=== PATIENT | female | born 1995 | race Caucasian/White ===

== ENCOUNTER 2016-12-24 20:16 | Outpatient (CLI) | payer OTHER ==
[~2016-12-24] VITALS: Ht 154.9 cm; Wt 71.2 kg
[~2016-12-24 20:16] MED LIST: FERR240T9 PO; PREN1TAB49 PO; PREN1TAB62 PO
[2016-12-24 20:36] VITALS: Ht 154.9 cm; Wt 71.2 kg
--- NOTE | 2016-12-24 21:58 | RADRPT ---
PROCEDURE: US OB biophysical profile. CLINICAL INDICATION: decreased movements, PTL TECHNIQUE: Multiple sonographic images of the pelvis were obtained. The images were reviewed on a PACS workstation. COMPARISON: 10/31/15 FINDINGS: There is a single viable intrauterine gestation. Cardiac activity is present with 132 beats per min esteban. There is a vertex presentation. The placenta is fundal. There is no evidence of placental abruption. There is a normal amount of amniotic fluid with an CHECO = 13.7 cm. Biophysical profile: movement 2/2 tone 2/2. breathing 2/2 CHECO 2/2 Total 02/20 RPTAT: AA . IMPRESSION: Normal biophysical profile. . .Papi Benton MD, MD Date Time Electronically viewed and signed by .Papi Benton MD, MD on 12/24/2016 21:58 .S/
[2016-12-24 21:59] LABS: ADD UMIC YES; URINE BILIRUBIN (Dip) NEGATIVE (NEGATIVE); URINE BLOOD (Dip) NEGATIVE (NEGATIVE); URINE COLOR LT. YELLOW (YELLOW); URINE GLUCOSE (Dip) NEGATIVE (NEGATIVE); URINE KETONES (Dip) NEGATIVE (NEGATIVE); URINE LEUKOCYTE ESTERASE (Dip) 1+ (NEGATIVE); URINE NITRITE (Dip) NEGATIVE (NEGATIVE); URINE TOTAL PROTEIN (Dip) NEGATIVE (NEGATIVE); URINE UROBILINOGEN (Dip) 0.2 E.U./dL (0.1-1.0)
[2016-12-24 22:11] LABS: URINE RBCS NONE SEEN /HPF (0)
[2016-12-24 22:12] LABS: BACTERIA,URINE RARE; SQUAMOUS EPITHELIAL CELL,UR RARE
--- NOTE | 2016-12-24 22:44 | PN ---
Triage Information Date/Time Weeks of Gestation 36+ : 2 Para: 1 Diabetes: none Diabetes management: diet controlled Hypertention: none Results/Medications Results 24 hrs Laboratory Tests Test 12/24/16 20:15 Urine Color LT. YELLOW Urine Clarity CLEAR Urine pH 6.0 Urine Specific Bailey 1.010 Urine Ketones NEGATIVE Urine Nitrite NEGATIVE Urine Bilirubin NEGATIVE Urine Urobilinogen 0.2 E.U./dL Urine Leukocyte Esterase 1+ H Urine Microscopic RBC NONE SEEN Urine Microscopic WBC 0-2 Urine Squamous Epithelial Cells RARE Urine Bacteria RARE Urine Hemoglobin NEGATIVE Urine Glucose NEGATIVE Urine Total Protein NEGATIVE Assessment/Plan No cervical change Labs AND Ultrasound results reviewed patient is discharged with precautions patient's questions answered STONEY DAHL M.D. Dec 24, 2016 22:44
--- NOTE | 2016-12-24 23:04 | TRIAGE ---
OB Triage Datetime Report Generated by CPN: 12/24/2016 23:04 Datetime: 12/24/2016 22:25 Stage of : OB Triage Labor Evaluation Frequency: Irregular Monitor Mode: External Duration (sec)2399: 50-100 Quality: Mild Pattern: Normal: <= 5 Contractions in 10 Minutes Resting Tone [place]: Relaxed Heart Rate FHR Baseline Rate: 135 Monitor Mode: External US Variability: Moderate 6-25 bpm Accelerations: 15X15 Decelerations: None Category: Category I Datetime: 12/24/2016 22:24 Stage of : OB Triage Pain Assessment Pain Scale: 2 Pain Presence: Intermittent Pain Type: Cramping Pain Location: Abdomen; Back Pain Relief Measures: Comfort Measures Pain Assessment Comments: Pt reports mild back pain _ cramping. Ok to go home. Datetime: 12/24/2016 21:30 Labor Evaluation Frequency: X1 Monitor Mode: External Duration (sec)2399: 60 Pattern: Normal: <= 5 Contractions in 10 Minutes Heart Rate FHR Baseline Rate: 140 Monitor Mode: External US FHR Baseline Changes: No Baseline Change Variability: Moderate 6-25 bpm Accelerations: 15X15 Category: Category I Datetime: 12/24/2016 20:34 Vaginal Exam Dilatation (cms): 1.0 Effacement (%): 30 Station: -2 Exam By: GSTRATTON Vaginal Bleeding: None Cervix, Consistency: Moderate Cervix, Position: Posterior Presentation 'A': Cephalic Datetime: 12/24/2016 20:30 Assessment Type: Triage Maternal Assessment Level of Consciousness: Fully Conscious Headache: Denies Blurred Vision: No Respiratory Effort: Unlabored; Regular Rhythm; Equal Expansion Nausea/Vomiting: Denies RUQ Epigastric Pain: Denies Facial Edema: None Fall Risk Assessment History of Falling: (0) No Secondary Diagnosis: (0) No Ambulatory Aid: (0) Bedrest/Nurse Assist IV Therapy: (0) No Gait: (0) Normal/Bedrest/Immobile Mental Status: (0) Oriented to Own Ability Fall Score: 0 Fall Risk Score Definition: No Risk: No action required Datetime: 12/24/2016 20:29 Monitor Mode: External Monitor Mode: External US Datetime: 12/24/2016 20:27 Temperature Route: Oral Datetime: 12/24/2016 20:26 Stage of : OB Triage Datetime: 12/24/2016 20:24 EGA: 36.5 Datetime: 12/24/2016 20:21 Time of Arrival: 12/24/2016 20:12 Arrived By: Wheelchair Arrived From: Home Chief Complaint: LOWER ABD PAIN/UC'S SINCE FRIDAY 12/22 Movement: Present Contractions: Occasional Time Contractions Began: 12/22/2016 09:00 Contractions: Q1HR Rupture of Membranes: Denies Vaginal Bleeding: None Vaginal Discharge: Denies Recent Sexual Intercouse: Denies Abdominal Trauma: Not Applicable Patient Complaints: Contractions; Cramping; Back Pain Time Provider Notified: 12/24/2016 20:56 Provider Notified: Initial Plan: EFPaula,SVDeana, CALL OB
== END 2016-12-24 22:36 | disposition home or self-care (01) ==
LOC: OBT 20:16 → L-D 20:17 → OBT 22:36
PROVIDERS: ATTEND Obstetrics & Gynecology
DX: O24.913 Unspecified diabetes mellitus in pregnancy, third trimester (principal); Z3A.36 36 weeks gestation of pregnancy
CPT/HCPCS: 76818; 81001; Z7500; G0463

== ENCOUNTER 2017-01-05 19:07 | Inpatient (IN) | payer OTHER ==
[~2017-01-05] VITALS: Ht 154.9 cm; Wt 71.2 kg
[~2017-01-05 19:07] MED LIST changes: -FERR240T9 PO; -PREN1TAB62 PO
[2017-01-05 20:07] VITALS: BP 115/69; PULSE 85; RESP 18; Ht 154.9 cm; Wt 71.2 kg
[2017-01-05] MEDS ORDERED: TERBUTALINE 1 MG/ML INJ SC ONE (21:30)
[2017-01-05] MEDS ORDERED: OXYTOCIN 30 UNITS/LR 500 ML IV PRN (23:00)
[2017-01-05] MEDS ORDERED: LACTATED RINGER'S 1,000 ML IV PRN (23:00)
[2017-01-05] MEDS ORDERED: LIDOCAINE 1% (MPF) 30 ML INJ INJ PRN (23:00)
[2017-01-05] MEDS ORDERED: MISOPROSTOL 200 MCG TAB PR PRN (23:00)
[2017-01-05] MEDS ORDERED: IBUPROFEN 600 MG TAB PO PRN (23:00)
[2017-01-05] MEDS ORDERED: CARBOPROST 250 MCG INJ IM PRN (23:00)
[2017-01-05] MEDS ORDERED: BUTORPHANOL 2 MG INJ IV PRN (23:00)
[2017-01-05] MEDS ORDERED: METHYLERGONOVINE 0.2 MG INJ IM PRN (23:00)
[2017-01-05] MEDS ORDERED: OXYTOCIN 30 UNITS/LR 500 ML IV SCH ×2 (23:00)
--- NOTE | 2017-01-05 23:26 | TRIAGE ---
OB Triage Datetime Report Generated by CPN: 01/05/2017 23:25 Datetime: 01/05/2017 23:00 Labor Evaluation Frequency: 4-8 Monitor Mode: External Duration (sec)2399: 60-80 Quality: Mild Pattern: Normal: <= 5 Contractions in 10 Minutes Resting Tone [place]: Relaxed Heart Rate FHR Baseline Rate: 130 Monitor Mode: External US Variability: Moderate 6-25 bpm Accelerations: 15X15 Decelerations: None Category: Category I Datetime: 01/05/2017 22:30 Labor Evaluation Frequency: 7-10 Monitor Mode: External Duration (sec)2399: 70-100 Quality: Mild Pattern: Normal: <= 5 Contractions in 10 Minutes Resting Tone [place]: Relaxed Heart Rate FHR Baseline Rate: 130 Monitor Mode: External US Variability: Moderate 6-25 bpm Accelerations: 15X15 Decelerations: None Category: Category I Datetime: 01/05/2017 22:08 Vaginal Exam Dilatation (cms): 5.0 Effacement (%): 80 Station: -2 Exam By: BE Vaginal Bleeding: None Cervix, Consistency: Soft Cervix, Position: Midposition Presentation 'A': Cephalic Datetime: 01/05/2017 21:50 Time of Arrival: 01/05/2017 19:05 EGA: 38.3 Arrived By: Ambulatory Arrived From: Home Chief Complaint: CONTRACTIONS SINCE THE AM Movement: Present Contractions: Irregular Contractions: Q20 MIN Rupture of Membranes: Denies Vaginal Bleeding: None Vaginal Discharge: Denies Recent Sexual Intercouse: Denies Abdominal Trauma: Not Applicable Patient Complaints: Contractions Time Provider Notified: 01/05/2017 20:15 Provider Notified: KETAN Initial Plan: CEFM, SVE Datetime: 01/05/2017 20:01 Monitor Mode: External Duration (sec)2399: X2 Quality: Mild Pattern: Normal: <= 5 Contractions in 10 Minutes Intensity IUP (mmHg): 70-110 Resting Tone [place]: Relaxed Heart Rate FHR Baseline Rate: 140 Monitor Mode: External US Variability: Moderate 6-25 bpm Accelerations: 15X15 Decelerations: None Category: Category I Datetime: 01/05/2017 19:30 Vaginal Exam Dilatation (cms): 4.0 Effacement (%): 70 Station: -2 Exam By: BE Vaginal Bleeding: None Cervix, Consistency: Soft Cervix, Position: Midposition Presentation 'A': Cephalic Datetime: 01/05/2017 19:28 Assessment Type: Triage Maternal Assessment Level of Consciousness: Fully Conscious DTR's/Clonus: DTRs 2+; No Clonus Headache: Denies Blurred Vision: No Respiratory Effort: Unlabored; Regular Rhythm; Equal Expansion Breath Sounds, Left: Clear and Equal Breath Sounds, Right: Clear and Equal Nausea/Vomiting: Denies RUQ Epigastric Pain: Denies Lower Extremities Edema: None Degree: None Upper Extremities Edema: None Degree: None Facial Edema: None Fall Risk Assessment History of Falling: (0) No Secondary Diagnosis: (0) No Ambulatory Aid: (0) Bedrest/Nurse Assist IV Therapy: (0) No Gait: (0) Normal/Bedrest/Immobile Mental Status: (0) Oriented to Own Ability Fall Score: 0 Fall Risk Score Definition: No Risk: No action required Datetime: 12/24/2016 20:30 Fall Score: 0 Fall Risk Score Definition: No Risk: No action required Datetime: 12/24/2016 20:24 EGA: 36.5
[2017-01-05] MEDS: LACTATED RINGER'S 1,000 ML IV SCH (23:36)
[2017-01-06 00:12] LABS: ADD SCAN DIFF NO
[2017-01-06 00:13] LABS: BASOPHILS % 0.1 % (0.0-2.0); EOSINOPHILS # 0.1 10^3/ul (0.0-0.5); EOSINOPHILS % 1.7 % (0.0-7.0); HEMOGLOBIN 11.5 g/dl (12.0-16.0); LYMPHOCYTES # 1.6 10^3/ul (0.8-2.9); MEAN CORPUSCULAR HEMOGLOBIN 29.5 pg (29.0-33.0); MEAN CORPUSCULAR HGB CONC 32.9 g/dl (32.0-37.0); MEAN CORPUSCULAR VOLUME 89.7 fl (82.0-101.0); MEAN PLATELET VOLUME 12.2 fl (7.4-10.4); MONOCYTE # 0.6 10^3/ul (0.3-0.9); MONOCYTES % 7.4 % (0.0-11.0); NEUTROPHIL # 5.9 10^3/ul (1.6-7.5); PLATELET COUNT 176 10^3/UL (140-415); RED CELL DISTRIBUTION WIDTH 14.7 % (11.5-14.5); WHITE BLOOD COUNT 8.4 10^3/ul (4.8-10.8)
[2017-01-06 00:31] LABS: INR 0.93; PARTIAL THROMBOPLASTIN TIME 28.1 Sec (25.0-35.0); PROTIME 12.5 Sec (12.2-14.2)
[2017-01-06] MEDS ORDERED: FENTAnyl 2MCG/ML-ROPIV 0.2% 100 ML ONE (02:33)
[2017-01-06] MEDS ORDERED: FENTAnyl 2MCG/ML-ROPIV 0.2% 100 ML BAG EPI SCH (03:00)
[2017-01-06] MEDS ORDERED: NALOXONE (0.4 MG/ML) INJ IV PRN (03:00)
[2017-01-06] MEDS ORDERED: ONDANSETRON 4 MG INJ IV PRN (03:00)
[2017-01-06] MEDS ORDERED: DIPHENHYDRAMINE 50 MG INJ IV PRN (03:00)
[2017-01-06] MEDS: LACTATED RINGER'S 1,000 ML IV SCH (05:31)
--- NOTE | 2017-01-06 07:15 | LDN ---
Date/Time of Note Date/Time of Note DATE: 01/06/17 TIME: 07:14 Delivery Summary 38+wks GA Placenta Delivered: Spontaneously Episiotomy: No Perineal laceration: 1 Anesthesia type: Epidural Estimated blood loss: 200 Sponge & Needle done & correct: Yes All needle counts correct: Yes Any foreign bodies felt in the: No Problems: Infant Delivery Information Apgars 1 Minute: 9 5 Minute: 9 Suctioning Nose & mouth suctioned at judith: Yes Delee suction performed: Yes Umbilical Cord Umbilical cord with: 3 Vessels Cord presentations: no nuchal cord Cord Blood was obtained: Yes STONEY DAHL M.D. Jan 06, 2017 07:15
--- NOTE | 2017-01-06 07:16 | HP ---
Date/Time of Note Date/Time of Note DATE: 01/06/17 TIME: 07:15 OB - History Hx of Present Free Text/Dictation @38+ wks GA : 6 Para: 5 Care: Good Care Ultrasounds: Normal mid trimester US Obstetrical Complications: None Medical Complications: None Past Family/Social History * Past Medical, Surgical, Family and Obstetric Histories reviewed from chart. OB Admission Exam Vital Signs Vital Signs Vital Signs Date Time Temp Pulse Resp B/P Pulse Ox O2 Delivery O2 Flow Rate FiO2 01/05/17 20:07 98.2 85 18 115/69 Room Air Physical Exam Abdomen: WNL Extremities: Normal Reflexes: Normal Membranes: Intact Heart Rate: 140's Accelerations: Accelerations Present Decelerations: No Decelerations Varibility: Moderate Contractions on Admission: < 5 Minutes Apart Last 72 hours Lab Results CBC & BMP 01/05/17 23:23 OB Assessment/Plan Reason for admission: observation Plan: Expectant Management Other plan: Anticipated STONEY DAHL M.D. Jan 06, 2017 07:16
[2017-01-06 09:25] VITALS: BP 97/53; PULSE 75; RESP 16
[2017-01-06] MEDS ORDERED: MISOPROSTOL 200 MCG TAB PR PRN (09:30)
[2017-01-06] MEDS ORDERED: WITCH HAZEL/GLYCERIN PAD PR PRN (09:30)
[2017-01-06] MEDS ORDERED: BENZOCAINE 20% 56 ML SPRAY TOP PRN (09:30)
[2017-01-06] MEDS ORDERED: OXYCODONE/ASPIRIN (4.88/325) TAB PO PRN (09:30)
[2017-01-06] MEDS ORDERED: SENNA/DOCUSATE NA (8.6MG/50MG) TAB PO PRN (09:30)
[2017-01-06] MEDS ORDERED: CARBOPROST 250 MCG INJ IM PRN (09:30)
[2017-01-06] MEDS ORDERED: LANOLIN 7 GM TUBE TOP PRN (09:30)
[2017-01-06] MEDS ORDERED: METHYLERGONOVINE 0.2 MG INJ IM PRN (09:30)
[2017-01-06] MEDS ORDERED: ZOLPIDEM 5 MG TAB PO PRN (09:30)
[2017-01-06] MEDS ORDERED: OXYTOCIN 30 UNITS/LR 500 ML IV PRN (09:30)
[2017-01-06] MEDS: SENNA/DOCUSATE NA (8.6MG/50MG) TAB PO SCH (09:38)
[2017-01-06 10:20] VITALS: BP 95/69; PULSE 67; RESP 16
[2017-01-06 11:54] VITALS: BP 110/63; PULSE 77; RESP 14
[2017-01-06] MEDS: IBUPROFEN 600 MG TAB PO SCH ×2 (11:57→17:56)
[2017-01-06] MEDS: LACTATED RINGER'S 1,000 ML IV* SCH ×2 (12:02→19:30)
[2017-01-06 16:55] VITALS: BP 106/75; PULSE 70; RESP 19
[2017-01-06 19:40] VITALS: BP 108/70; PULSE 69; RESP 19
[2017-01-07] MEDS: IBUPROFEN 600 MG TAB PO SCH ×3 (00:12→11:52)
[2017-01-07] MEDS: LACTATED RINGER'S 1,000 ML IV* SCH ×2 (02:31→09:17)
[2017-01-07 03:40] VITALS: BP 108/59; PULSE 65; RESP 19
[2017-01-07 07:33] LABS: ADD SCAN DIFF NO
[2017-01-07 07:50] LABS: BASOPHILS % 0.1 % (0.0-2.0); EOSINOPHILS # 0.1 10^3/ul (0.0-0.5); EOSINOPHILS % 1.8 % (0.0-7.0); HEMATOCRIT 30.8 % (37.0-47.0); HEMOGLOBIN 10.2 g/dl (12.0-16.0); LYMPHOCYTES % 25.6 % (15.0-51.0); MEAN CORPUSCULAR HEMOGLOBIN 30.1 pg (29.0-33.0); MEAN CORPUSCULAR HGB CONC 33.1 g/dl (32.0-37.0); MEAN CORPUSCULAR VOLUME 90.9 fl (82.0-101.0); MEAN PLATELET VOLUME 12.5 fl (7.4-10.4); MONOCYTE # 0.7 10^3/ul (0.3-0.9); MONOCYTES % 8.5 % (0.0-11.0); NEUTROPHIL # 4.8 10^3/ul (1.6-7.5); NEUTROPHILS % 63.1 % (39.0-77.0); PLATELET COUNT 146 10^3/UL (140-415); RED BLOOD COUNT 3.39 10^6/ul (4.20-5.40); RED CELL DISTRIBUTION WIDTH 14.9 % (11.5-14.5); WHITE BLOOD COUNT 7.6 10^3/ul (4.8-10.8)
[2017-01-07 08:25] VITALS: BP 101/65; PULSE 61; RESP 18
[2017-01-07] MEDS: SENNA/DOCUSATE NA (8.6MG/50MG) TAB PO SCH (10:14)
--- NOTE | 2017-01-07 12:09 | PD.PPDC ---
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
--- NOTE | 2017-01-07 12:13 | DS ---
Date/Time of Note Date/Time of Note DATE: 01/07/17 TIME: 12:09 Discharge Summary Admission/Discharge Info Admit Date/Time Jan 05, 2017 at 23:10 Discharge Date/Time January 07, 2017 at 1205 Discharge Diagnosis Day 1 post normal vaginal delivery Patient Condition: Good Procedures Normal spontaneous vaginal delivery Hx of Present Illness Term normal vaginal delivery Hospital Course Satisfactory uneventful Home Meds Reported Medications Vits W-Ca,Fe,Fa(<1MG) () 1 Tab Tablet, 1 TAB PO 01/05/12 Follow-up Plan Appointment clinic in 2 weeks for follow-up Primary Care Provider Kofi Abreu Pending Labs Laboratory Tests Test 01/07/17 06:15 White Blood Count 7.610^3/ul (4.8-10.8) Red Blood Count 3.3910^6/ul (4.20-5.40) Hemoglobin 10.2g/dl (12.0-16.0) Hematocrit 30.8% (37.0-47.0) Mean Corpuscular Volume 90.9fl (82.0-101.0) Mean Corpuscular Hemoglobin 30.1pg (29.0-33.0) Mean Corpuscular Hemoglobin Concent 33.1g/dl (32.0-37.0) Red Cell Distribution Width 14.9% (11.5-14.5) Platelet Count 12446^3/UL (140-415) Mean Platelet Volume 12.5fl (7.4-10.4) Neutrophils % 63.1% (39.0-77.0) Lymphocytes % 25.6% (15.0-51.0) Monocytes % 8.5% (0.0-11.0) Eosinophils % 1.8% (0.0-7.0) Basophils % 0.1% (0.0-2.0) Nucleated Red Blood Cells % 0.0/100WBC (0.0-0.0) Neutrophils # 4.810^3/ul (1.6-7.5) Lymphocytes # 2.010^3/ul (0.8-2.9) Monocytes # 0.710^3/ul (0.3-0.9) Eosinophils # 0.110^3/ul (0.0-0.5) Basophils # 0.010^3/ul (0.0-0.1) Nucleated Red Blood Cells # 0.010^3/ul (0.0-0.0) STEPHEN PARRISH MD Jan 07, 2017 12:13
[2017-01-08] MEDS ORDERED: DIPHTH/TET/ACEL PERTUSS (ADULT) 0.5 ML VIAL IM* ONE (09:00)
== END 2017-01-07 15:20 | disposition home or self-care (01) | DRG 775 ==
LOC: OBT 19:07 → L-D 19:07 → OBT 22:49 → L-D 23:10 → PP1 01-06 09:38
PROVIDERS: ADMIT Obstetrics & Gynecology; ATTEND Obstetrics & Gynecology
PROC: 10E0XZZ Delivery of Products of Conception, External Approach (ICD-10-PCS; principal; 2017-01-06)
PROC: 0HQ9XZZ Repair Perineum Skin, External Approach (ICD-10-PCS; 2017-01-06)
PROC: 3E0234Z Introduction of Serum, Toxoid and Vaccine into Muscle, Percutaneous Approach (ICD-10-PCS; 2017-01-07)
DX: O70.0 First degree perineal laceration during delivery (principal); Z37.0 Single live birth; Z3A.38 38 weeks gestation of pregnancy
CPT/HCPCS: 62319; 85025; 85610; 85730; 86592; 86850; 86885; 86900; 86901; G0463; J2405; J2590; J2790; J3010; J7120

== ENCOUNTER 2017-03-17 23:29 | Emergency (ER) | payer SELFPAY ==
[~2017-03-17] VITALS: Ht 162.6 cm; Wt 62.0 kg
[2017-03-17 23:57] VITALS: Ht 162.6 cm; Wt 62.0 kg
[2017-03-18] MEDS ORDERED: ONDANSETRON 4 MG INJ IV STA (02:08)
[2017-03-18] MEDS ORDERED: SOD CHLORIDE 0.9% 1,000 ML IV STA (02:08)
[2017-03-18] MEDS ORDERED: morphine 4 MG/ML VIAL IV STA (02:08)
--- NOTE | 2017-03-18 03:01 | ERD ---
ER Documentation Chief Complaint Date/Time DATE: 03/18/17 TIME: 02:59 Chief Complaint bilateral flank pain x 3 days, denies dysuria, +hearn/bilateral ear ache HPI 21-year-old female presents here in emergency department for complaints of bilateral upper abdominal pain radiating to the bilateral flank area and back that started 3 days ago. Patient described the pain as sharp pain, 6/10 scale, accompanied with fever on and off. Patient denies any nausea or vomiting. Patient states that she also has been having headache and bilateral ear pain, throbbing pain, 6/10 scale, accompanying the symptoms. ROS All systems reviewed and are negative except as per history of present illness. Medications Home Meds Active Scripts Hydrocodone/Acetaminophen (Edwards 5-325 Tablet) 1 Each Tablet, 1 TAB PO Q6H Y for SEVERE PAIN LEVEL 7-10, #20 TAB Prov:JANET ORTEGA NP 03/18/17 Ibuprofen* (Motrin*) 600 Mg Tab, 600 MG PO Q6H Y for PAIN AND OR ELEVATED TEMP, #30 TAB Prov:JANET ORTEGA NP 03/18/17 Phenazopyridine Hcl* (Pyridium*) 200 Mg Tab, 200 MG PO TID Y for URINARY PAIN, # 6 TAB Prov:JANET ORTEGA NP 03/18/17 Ciprofloxacin Hcl* (Ciprofloxacin Hcl*) 500 Mg Tablet, 500 MG PO BID for 10 Days , TAB Prov:JANET ORTEGA NP 03/18/17 Reported Medications Vits W-Ca,Fe,Fa(<1MG) () 1 Tab Tablet, 1 TAB PO 01/05/12 Allergies Allergies: Coded Allergies: No Known Drug Allergy (Verified Allergy, Unknown, 12/24/16) PMhx/Soc Medical and Surgical Hx: pt denies Medical Hx, pt denies Surgical Hx Hx Alcohol Use: No Hx Substance Use: No Hx Tobacco Use: No Smoking Status: Never smoker FmHx Family History: No coronary disease, No diabetes, No other Physical Exam Vitals Vital Signs Date Time Temp Pulse Resp B/P Pulse Ox O2 Delivery O2 Flow Rate FiO2 03/17/17 23:57 100.2 93 18 107/65 97 Physical Exam GENERAL: The patient is well developed and appropriate for usual state of health, in no apparent distress. CHEST: Clear to auscultation bilaterally. There are no rales, wheezes or rhonchi. HEART: Regular rate and rhythm. No murmurs, clicks, rubs or gallops. No S3 or S4. ABDOMEN: Soft, nontender and nondistended. Good bowel sounds. No rebound or guarding. No gross peritonitis. No gross organomegaly or masses. No Farfan sign or McBurney point tenderness. BACK: No midline or flank tenderness. EXTREMITIES: Equal pulses bilaterally. There is no peripheral clubbing, cyanosis or edema. No focal swelling or erythema. Full range of motion. Grossly neurovascularly intact. NEURO: Alert and oriented. Cranial nerves 2-12 intact. Motor strength in all 4 extremities with 5/5 strength. Sensation grossly intact. Normal speech and gait. SKIN: There is no apparent rash or petechia. The skin is warm and dry. HEMATOLOGIC AND LYMPHATIC: There is no evidence of excessive bruising or lymphedema. No gross cervical, axillary, or inguinal lymphadenopathy. Result Diagram: 03/18/17 0257 03/18/17 0257 Results 24 hrs Laboratory Tests Test 03/18/17 02:57 White Blood Count 16.010^3/ul Red Blood Count 4.2410^6/ul Hemoglobin 12.4g/dl Hematocrit 36.6% Mean Corpuscular Volume 86.3fl Mean Corpuscular Hemoglobin 29.2pg Mean Corpuscular Hemoglobin Concent 33.9g/dl Red Cell Distribution Width 13.9% Platelet Count 32551^3/UL Mean Platelet Volume 11.9fl Neutrophils % 81.5% Lymphocytes % 9.1% Monocytes % 8.6% Eosinophils % 0.1% Basophils % 0.1% Nucleated Red Blood Cells % 0.0/100WBC Neutrophils # (Manual) 13.010^3/ul Lymphocytes # 1.510^3/ul Monocytes # 1.410^3/ul Eosinophils # 0.010^3/ul Basophils # 0.010^3/ul Nucleated Red Blood Cells # 0.010^3/ul Urine Color YELLOW Urine Clarity CLOUDY Urine pH 5.0 Urine Specific [place] 1.020 Urine Ketones TRACEmg/dL Urine Nitrite POSITIVEmg/dL Urine Bilirubin NEGATIVEmg/dL Urine Urobilinogen NEGATIVEmg/dL Urine Leukocyte Esterase 3+Christy/ul Urine Microscopic RBC 8/HPF Urine Microscopic WBC 67/HPF Urine Squamous Epithelial Cells FEW/HPF Urine Bacteria MANY/HPF Urine Mucus MANY/HPF Urine Hemoglobin 2+mg/dL Urine Glucose NEGATIVEmg/dL Urine Total Protein 2+mg/dl Sodium Level 141mmol/L Potassium Level 3.9mmol/L Chloride Level 101mmol/L Carbon Dioxide Level 29mmol/L Anion Gap 15 Blood Urea Nitrogen 13mg/dl Creatinine 0.70mg/dl Glucose Level 164mg/dl Calcium Level 9.3mg/dl Total Bilirubin 1.0mg/dl Direct Bilirubin 0.00mg/dl Indirect Bilirubin 1.0mg/dl Aspartate Amino Transf (AST/SGOT) 20IU/L Alanine Aminotransferase (ALT/SGPT) 28IU/L Alkaline Phosphatase 89IU/L Total Protein 7.9g/dl Albumin 4.2g/dl Globulin 3.70g/dl Albumin/Globulin Ratio 1.13 Lipase 19U/L Current Medications Medications (Trade) Dose Ordered Sig/Radha Route PRN Reason Start Time Stop Time Status Last Admin Dose Admin Sodium Chloride (NS) 1,000 ml @ 1,000 mls/hr Q1H STAT IV 03/18/17 02:08 03/18/17 03:07 DC 03/18/17 03:21 Morphine Sulfate (morphine) 4 mg ONCE STAT IV 03/18/17 02:08 03/18/17 02:09 DC 03/18/17 03:20 Ondansetron HCl 4 mg 4 mg ONCE STAT IV 03/18/17 02:08 03/18/17 02:09 DC 03/18/17 03:21 Ceftriaxone Sodium (Rocephin) 50 ml @ 100 mls/hr ONCE ONCE IVPB 03/18/17 05:30 03/18/17 05:59 03/18/17 05:32 Patient was given medication for pain here in emergency department, after treatment, patient verbalized feeling much better. Patient's pain is improved.Normal saline IV bolus was given here in emergency department for rehydration, patient tolerated IV fluids.Patient was given Zofran here in the emergency department. After treatment, patient was able to tolerate po fluids here in the emergency department without any vomiting. There is no signs and symptoms of dehydration. PROCEDURE: US Abdomen (right upper quadrant). CLINICAL INDICATION: Abdominal pain TECHNIQUE: Multiple real-time longitudinal and transverse images of the right upper quadrant of the abdomen were acquired utilizing a curved array transducer. Images were reviewed on a high-resolution PACS workstation. The exam is limited due to body habitus. COMPARISON: None FINDINGS: The liver is normal in size and echogenicity without focal mass or intrahepatic biliary dilatation. There is normal hepatopedal flow within the main portal vein. The gallbladder is normal. There is no pericholecystic fluid or gallbladder wall thickening or gallstones. No intra or extrahepatic biliary dilatation is seen. The common bile duct measures 4.0 mm in maximal dimension. The visualized portions of the pancreas are unremarkable with obscuration of the tail of the pancreas. No free fluid is identified. The right kidney measures 11.6 cm in length. There is normal echogenicity within the right kidney. There is no perinephric fluid collection. No hydronephrosis, mass, or calculus is seen. IMPRESSION: No evidence of cholelithiasis or acute cholecystitis. RPTAT: HCNS Physician Parish Date Time Electronically viewed and signed by Physician Parish on 03/18/2017 03: 59 CS/ CC: JANET ORTGEA [employer] Procedures/MDM Medical Decision Making: Patient's symptoms aside is consistent with pyelonephritis. Liver function tests are normal, lipase are normal, no pancreatitis, acute cholecystitis. Outpatient management is appropriate at this time since patient has no risk factors, patient appears well and is hemodynamically stable. Patient fever is controlled. Strict return to ER precautions was advised to the patient.There is low suspicion for abdominal emergencies at this time. Patients abdominal exam is normal at this time. Patients radiology exam does not show any abdominal emergencies at this time. There is low suspicion for appendicitis, cholecystitis, abdominal aortic aneurysms or peritonitis at this time. There is low suspicion for sepsis. Patient appears well and is hemodynamically stable. Disposition: Home. Condition: Stable Prescription ciprofloxacin, Pyridium, ibuprofen, Edwards Instructions: Patient is advised to take medications as prescribed. Patient is advised to rest, increase fluid intake and do brat diet for next 1-2 days and progress as tolerated. Patient is advised that if symptoms are worse, severe abdominal pain, uncontrolled vomiting, high fever, severe flank pain, worst signs and symptoms, to return to the emergency department immediately. Otherwise, patient can follow up with primary care doctor in 5-7 days. Departure Diagnosis: Primary Impression: Pyelonephritis Condition: Stable Patient Instructions: Pyelonephritis, Female (Adult) Additional Instructions: Patient is advised to take medications as prescribed. Patient is advised to rest , increase fluid intake and do brat diet for next 1-2 days and progress as tolerated. Patient is advised that if symptoms are worse, severe abdominal pain , uncontrolled vomiting, high fever, severe flank pain, worst signs and symptoms , to return to the emergency department immediately. Otherwise, patient can follow up with primary care doctor in 5-7 days. JANET ORTEGA NP Mar 18, 2017 03:00
[2017-03-18 03:22] LABS: BASOPHILS % 0.1 % (0.0-2.0); EOSINOPHILS % 0.1 % (0.0-7.0); HEMATOCRIT 36.6 % (37.0-47.0); HEMOGLOBIN 12.4 g/dl (12.0-16.0); LYMPHOCYTES # 1.5 10^3/ul (0.8-2.9); LYMPHOCYTES % 9.1 % (15.0-51.0); MEAN CORPUSCULAR HEMOGLOBIN 29.2 pg (29.0-33.0); MEAN CORPUSCULAR HGB CONC 33.9 g/dl (32.0-37.0); MEAN CORPUSCULAR VOLUME 86.3 fl (82.0-101.0); MEAN PLATELET VOLUME 11.9 fl (7.4-10.4); MONOCYTE # 1.4 10^3/ul (0.3-0.9); MONOCYTES % 8.6 % (0.0-11.0); NEUTROPHILS % 81.5 % (39.0-77.0); PLATELET COUNT 181 10^3/UL (140-415); RED BLOOD COUNT 4.24 10^6/ul (4.20-5.40); RED CELL DISTRIBUTION WIDTH 13.9 % (11.5-14.5)
--- NOTE | 2017-03-18 04:01 | RADRPT ---
PROCEDURE: US Abdomen (right upper quadrant). CLINICAL INDICATION: Abdominal pain TECHNIQUE: Multiple real-time longitudinal and transverse images of the right upper quadrant of th e abdomen were acquired utilizing a curved array transducer. Images were reviewed on a high-resoluti on PACS workstation. The exam is limited due to body habitus. COMPARISON: None FINDINGS: The liver is normal in size and echogenicity without focal mass or intrahepatic biliary dilatation. There is normal hepatopedal flow within the main portal vein. The gallbladder is normal. There is no pericholecystic fluid or gallbladder wall thickening or gallstones. No intra or extrahepatic abbey iary dilatation is seen. The common bile duct measures 4.0 mm in maximal dimension. The visualized portions of the pancreas are unremarkable with obscuration of the tail of the pancreas. No free fl uid is identified. The right kidney measures 11.6 cm in length. There is normal echogenicity within the right kidney. There is no perinephric fluid collection. No hydronephrosis, mass, or calculus is seen. IMPRESSION: No evidence of cholelithiasis or acute cholecystitis. RPTAT: HCNS Physician Parish Date Time Electronically viewed and signed by Physician Parish on 03/18/2017 03:59 /
[2017-03-18 04:17] LABS: ALBUMIN 4.2 g/dl (3.3-4.9); ALBUMIN/GLOBULIN RATIO 1.13; CALCIUM 9.3 mg/dl (8.4-10.2); CREATININE 0.7 mg/dl (0.44-1.00); POTASSIUM 3.9 mmol/L (3.5-5.1); TOTAL PROTEIN 7.9 g/dl (6.1-8.1)
[2017-03-18 05:14] LABS: ADD UMIC YES; UR ASCORBIC ACID NEGATIVE (NEGATIVE); UR BACTERIA MANY /HPF (NONE SEEN); UR BILIRUBIN (Dip) NEGATIVE (NEGATIVE); UR BLOOD (Dip) 2+ mg/dL (NEGATIVE); UR CLARITY CLOUDY (CLEAR); UR COLOR YELLOW (YELLOW); UR GLUCOSE (Dip) NEGATIVE (NEGATIVE); UR KETONES (Dip) TRACE mg/dL (NEGATIVE); UR LEUKOCYTE ESTERASE (Dip) 3+ Leu/ul (NEGATIVE); UR MUCUS MANY /HPF (NONE SEEN); UR NITRITE (Dip) POSITIVE (NEGATIVE); UR RBC 8 /HPF (0-5); UR SQUAMOUS EPITHELIAL CELL FEW /HPF (FEW); UR TOTAL PROTEIN (Dip) 2+ mg/dl (NEGATIVE); UR UROBILINOGEN (Dip) NEGATIVE (NEGATIVE)
[2017-03-18] MEDS ORDERED: PHEN-538 PO (05:17)
[2017-03-18] MEDS ORDERED: CIPR500T4 PO (05:17)
[2017-03-18] MEDS ORDERED: IBUP-1542 PO (05:17)
[2017-03-18] MEDS ORDERED: HYDR-906 PO (05:17)
[2017-03-18] MEDS ORDERED: CEFTRIAXONE 1 GM/50 ML (PMX) 50 ML IVPB ONE (05:30)
[2017-03-18 06:02] VITALS: BP 103/61; PULSE 98; RESP 18; TEMP 100.1
== END 2017-03-18 06:04 | disposition home or self-care (01) ==
LOC: FTE 23:29
DX: N12 Tubulo-interstitial nephritis, not specified as acute or chronic (principal)
CPT/HCPCS: 36415; 76705; 80053; 81001; 83690; 85025; 96374; 96375; 99285; J0696; J2270; J2405; J7030

== ENCOUNTER 2018-11-07 10:20 | Emergency (ER) | payer OTHER ==
[~2018-11-07] VITALS: Ht 154.9 cm; Wt 65.9 kg
[~2018-11-07 10:20] MED LIST changes: +CIPR500T4 PO; +HYDR-4011 PO; +IBUP-1542 PO; +PHEN-538 PO
[2018-11-07 10:23] VITALS: BP 130/90; PULSE 82; RESP 18; Ht 154.9 cm; Wt 65.9 kg
--- NOTE | 2018-11-07 12:41 | ERD ---
ER Documentation Chief Complaint Chief Complaint VOMITING AND HEADACHE THIS MORNING HPI 23-year-old female, presents to the emergency department, complaining of acute onset of headache, nausea and vomiting times since this morning. Otherwise she denies abdominal pain, no cough, no fever or chills, no distal weakness, numbness or tingling. ROS All systems reviewed and are negative except as per history of present illness. Medications Home Meds Active Scripts Acetaminophen* (Tylenol*) 325 Mg Tablet, 2 TAB PO Q6 PRN for PAIN AND OR ELEVATED TEMP, #20 TAB Prov:SAMAN PITTS MD 11/07/18 Ranitidine Hcl* (Zantac*) 150 Mg Tablet, 150 MG PO BID PRN for EPIGASTRIC PAIN, #14 TAB Prov:SAMAN PITTS MD 11/07/18 Ondansetron Hcl* (Zofran*) 4 Mg Tablet, 4 MG PO Q8H PRN for NAUSEA AND/OR VOMITING, #12 TAB Prov:SAMAN PITTS MD 11/07/18 Hydrocodone/Acetaminophen ([place] 5-325 Tablet) 1 Each Tablet, 1 TAB PO Q6H PRN for SEVERE PAIN LEVEL 7-10, #20 TAB Prov:JANET ORTEGA NP 03/18/17 Ibuprofen* (Motrin*) 600 Mg Tab, 600 MG PO Q6H PRN for PAIN AND OR ELEVATED TEMP, #30 TAB Prov:JANET ORTEGA NP 03/18/17 Phenazopyridine Hcl* (Pyridium*) 200 Mg Tab, 200 MG PO TID PRN for URINARY PAIN, #6 TAB Prov:JANET ORTEGA NP 03/18/17 Ciprofloxacin Hcl* (Ciprofloxacin Hcl*) 500 Mg Tablet, 500 MG PO BID for 10 Days, TAB Prov:JANET ORTEGA NP 03/18/17 Reported Medications Vits W-Ca,Fe,Fa(<1MG) () 1 Tab Tablet, 1 TAB PO 01/05/12 Allergies Allergies: Coded Allergies: No Known Drug Allergy (Verified Allergy, Unknown, 11/07/18) PMhx/Soc Medical and Surgical Hx: pt denies Medical Hx, pt denies Surgical Hx Hx Alcohol Use: No Hx Substance Use: No Hx Tobacco Use: No FmHx Family History: diabetes; No coronary disease Physical Exam Vitals Vital Signs Date Temp Pulse Resp B/P (MAP) Pulse Ox O2 O2 Flow FiO2 Time Delivery Rate 11/07/18 98.2 82 18 130/90 100 10:23 (103) Physical Exam Const: No acute distress Head: Atraumatic Eyes: Normal Conjunctiva ENT: Normal External Ears, Nose and Mouth. Neck: Full range of motion. No meningismus. Resp: Clear to auscultation bilaterally Cardio: Regular rate and rhythm, no murmurs Abd: Soft, non tender, non distended. Normal bowel sounds Skin: No petechiae or rashes Back: No midline or flank tenderness Ext: No cyanosis, or edema Neur: Awake and alert Psych: Normal Mood and Affect Results 24 hrs Laboratory Tests Test 11/07/18 13:01 11/07/18 13:03 Bedside Urine pH (LAB) 8.5 Bedside Urine Protein (LAB) 1+ Bedside Urine Glucose (UA) Negative Bedside Urine Ketones (LAB) Negative Bedside Urine Blood Trace-intact Bedside Urine Nitrite (LAB) Negative Bedside Urine Leukocyte Esterase (L Negative POC Beta HCG, Qualitative NEGATIVE Current Medications Medications Dose Sig/Radha Start Time Status Last (Trade) Ordered Route PRN Stop Time Admin Dose Reason Admin Ondansetron 8 mg ONCE STAT 11/07/18 DC 11/07/18 HCl (Zofran ODT 12:49 12:56 Odt) 11/07/18 12:52 Procedures/MDM Physical exam unremarkable, patient in no distress, hydrated, adequate oral intake, abdomen, soft, nontender, no peritoneal signs. Differential diagnosis include but not limited to: gastrointestinal infection bacterial/viral, UTI, appendicitis, colitis, food poisoning, food intolerance. Low suspicion for acute abdomen Physical examination and clinical presentation consistent most likely with viral gastroenteritis. During the ED course the patient remained stable, overall improvement of the symptoms after receiving treatment in the emergency department with Zofran. Clinical impression discussed with [mother] who agrees with management. The patient is stable to be discharged home, Some side effects of prescribed medications (headache, rash, nausea, vomiting, diarrhea, interactions with other medications) were reviewed. The patient requires a follow up with the primary care provider in the next 48h. If symptoms persist, worsen or new symptoms develop, then patient should return to the ED immediately. Disclaimer: Inadvertent spelling and grammatical errors are likely due to EHR/dictation software use and do not reflect on the overall quality of patient care. Also, please note that the electronic time recorded on this note does not necessarily reflect the actual time of the patient encounter. Departure Diagnosis: Primary Impression: Gastroenteritis Condition: Stable Additional Instructions: Thank you very much for allowing us to participate in your care. Your health and safety is our top priority at [facility]. The evaluation in the emergency department has been done to rule out an acute emergency, therefore, chronic conditions like malignancy or other diseases have not been evaluated; therefore, you need to follow up with a primary care provider in the next 48h. If symptoms persist, worsen or new symptoms develop, then patient should return to the ED immediately. Call your primary care doctor TOMORROW for an appointment during the next 2-4 days and bring all the information provided. Have prescriptions filled and follow precisely the directions on the label. If the symptoms get worse and your provider is unavailable, return to the Emergency Department immediately. SAMAN PITTS MD Nov 07, 2018 12:41
[2018-11-07] MEDS ORDERED: ONDANSETRON (ODT) 4 MG TAB ODT STA (12:49)
[2018-11-07] MEDS ORDERED: ONDA4TAB8 PO (12:52)
[2018-11-07] MEDS ORDERED: RANI150T35 PO (12:52)
[2018-11-07] MEDS ORDERED: ACET325T33 PO (12:52)
== END 2018-11-07 13:51 | disposition home or self-care (01) ==
LOC: FTE 10:20
DX: K52.9 Noninfective gastroenteritis and colitis, unspecified (principal)
CPT/HCPCS: 81003; 81025; Z7502; Z7610; 99283